=== PATIENT | male | born 1985 | race African-American/Black ===

== ENCOUNTER 2017-03-24 00:48 | Emergency (ER) | payer BC, OTHER ==
[2017-03-24 00:51] VITALS: TEMP 98.2
--- NOTE | 2017-03-24 01:18 | ED ---
General Adult HPI - General Chief complaint: Abdominal Pain Stated complaint: Abd pain Time Seen by Provider: 03/24/17 01:01 Source: patient Mode of arrival: ambulatory Limitations: no limitations - History of Present Illness Initial comments: 31-year-old male patient presents today for urogenital complaints. Patient states that approximately 2 days ago he developed some generalized mild abdominal pain, states that he felt like he might of had some gas. He states that this did last for a couple of days however has resolved. Additionally patient has been experiencing some dysuria, frequency of urination, and a feeling of incomplete bladder emptying. Patient states that these symptoms have persisted despite resolution of the abdominal pain. He states that he was constipated however did have a bowel movement today. He denies any back pain, fever, chills, penile discharge, scrotal swelling, testicular pain, nausea, vomiting, diarrhea, hematochezia, melena, dizziness, weakness, headaches, or visual disturbance. He states that he rarely drinks alcohol. Denies any tobacco or illicit drug use. States that he is in a monogamous relationship and is not concerned for STDs. - Related Data Home Medications Medication Instructions Recorded Confirmed No Known Home Medications [No 03/24/17 03/24/17 Known Home Medications] Allergies Allergy/AdvReac Type Severity Reaction Status Date / Time No Known Allergies Allergy Verified 03/24/17 00:51 Review of Systems ROS Statement: Those systems with pertinent positive or pertinent negative responses have been documented in the HPI. ROS Other: All systems not noted in ROS Statement are negative. Past Medical History Past Medical History: No Reported History History of Any Multi-Drug Resistant Organisms: None Reported Past Surgical History: No Surgical Hx Reported Past Psychological History: No Psychological Hx Reported Smoking Status: Never smoker Past Alcohol Use History: Occasional Past Drug Use History: None Reported General Exam Limitations: no limitations General appearance: alert, in no apparent distress, other (This is a well- developed, well-nourished adult male patient in no acute distress. Vital signs upon presentation are temperature 98.2F, pulse 97, respirations 20, blood pressure 128/85, pulse ox 100% on room air.) Eye exam: Present: normal appearance, PERRL, EOMI. Absent: scleral icterus, conjunctival injection, periorbital swelling ENT exam: Present: normal exam, normal oropharynx, mucous membranes moist Respiratory exam: Present: normal lung sounds bilaterally. Absent: respiratory distress, wheezes, rales, rhonchi, stridor Cardiovascular Exam: Present: regular rate, normal rhythm, normal heart sounds. Absent: systolic murmur, diastolic murmur, rubs, gallop, clicks GI/Abdominal exam: Present: soft, normal bowel sounds. Absent: distended, tenderness, guarding, rebound, rigid, mass, hernia Back exam: Present: normal inspection. Absent: CVA tenderness (R), CVA tenderness (L) Neurological exam: Present: alert, oriented X3, CN II-XII intact Psychiatric exam: Present: normal affect, normal mood Skin exam: Present: warm, dry, intact, normal color. Absent: rash Course Vital Signs 03/24/17 00:49 Temperature 98.2 F Pulse Rate 97 Respiratory 20 Rate Blood Pressure 128/85 O2 Sat by Pulse 100 Oximetry Medical Decision Making - Medical Decision Making 31-year-old male patient presented for evaluation today for symptoms of dysuria , feelings of incomplete bladder emptying, and frequency in urination. Patient also had been experiencing some mild generalized abdominal pain over the last couple of days it has since resolved. Physical examination was unremarkable, abdomen was nontender, nondistended. Urinalysis was negative for any acute process. Urine was sent for Neisseria and Chalmydia culture. KUB x-ray of the abdomen showed overall nonobstructive bowel gas pattern, no significant fecal burden noted. At this time patient vital signs are stable, he is not in any distress. He will be discharged home. He is instructed to call for an appointment with his primary care physician should his symptoms continue. He is instructed to increase his fluid intake. He is instructed to return here immediately for any new, worsening, or concerning symptoms. He verbalizes understanding and agrees this plan. - Lab Data Lab Results 03/24/17 Range/Units 01:10 Urine Color Light Yellow Urine Appearance Clear (Clear) Urine pH 7.0 (5.0-8.0) Ur Specific [place] 1.005 (1.001-1.035) Urine Protein Negative (Negative) Urine Glucose (UA) Negative (Negative) Urine Ketones Negative (Negative) Urine Blood Negative (Negative) Urine Nitrite Negative (Negative) Urine Bilirubin Negative (Negative) Urine Urobilinogen <2.0 (<2.0) mg/dL Ur Leukocyte Esterase Negative (Negative) - Radiology Data Radiology results: report reviewed, image reviewed Two-view x-ray the abdomen shows no sign of intestinal obstruction or pneumoperitoneum. Fecal pattern is normal. Lung bases are clear. There are no pathologic calcifications over the kidneys. Bony structures appear normal. There is no sign of a mass. Impression by Dr. Cantrell shows nonacute abdomen. Disposition Clinical Impression: Abdominal pain, Dysuria Disposition: HOME SELF-CARE Condition: Good Instructions: Dysuria (ED), Abdominal Pain (ED) Additional Instructions: Increase fluids. Follow-up with her primary care physician for recheck in 1-2 days. Return here immediately for any new, worsening, or concerning symptoms. Referrals: Eric Alvarez MD [Primary Care Provider] - 1-2 days Time of Disposition: 01:51
[2017-03-24 01:26] LABS: Appearance,Urine Clear (Clear); Bilirubin,Urine Negative (Negative); Glucose,Urine (UA) Negative (Negative); Ketones,Urine Negative (Negative); Leukocyte Esterase,Urine Negative (Negative); Nitrite,Urine Negative (Negative); Protein,Urine Negative (Negative); Specific Gravity,Urine 1.005 (1.001-1.035); UA Billing (MACRO vs. MICRO) CHEM; Urobilinogen,Urine <2.0 mg/dL (<2.0)
--- NOTE | 2017-03-24 01:38 | XR ---
EXAMINATION TYPE: XR KUB DATE OF EXAM: 03/24/2017 COMPARISON: NONE HISTORY: Normal pain TECHNIQUE: 2 views FINDINGS: There is no sign of intestinal obstruction or pneumoperitoneum. Fecal pattern is normal. Ibis ng bases are clear. There are no pathologic calcifications over the kidneys. Bony structures appear n ormal. There is no sign of a mass. IMPRESSION: Nonacute abdomen.
[2017-03-24 02:04] VITALS: BP 128/72; PULSE 68; RESP 18
== END 2017-03-24 02:02 | disposition home or self-care (01) ==
LOC: EC 00:48
DX: R10.84 Generalized abdominal pain (principal); R30.0 Dysuria; R35.0 Frequency of micturition
CPT/HCPCS: 74000; 81003; 87491; 87591; 99284

== ENCOUNTER → 2021-02-03 | Outpatient (CLI) | payer OTHER ==
[2021-02-03 11:05] LABS: HCT 46.4 % (39.6-50.0); HGB 15.2 g/dL (13.0-17.0); MCH 29.3 pg (27.0-32.0); MCHC 32.8 g/dL (32.0-37.0); MCV 89.4 fL (80.0-97.0); Mean Platelet Volume 10.2 fL (9.5-12.2); Platelet Count 251 X 10*3/uL (140-440); RBC 5.19 X 10*6/uL (4.40-5.60); RDW 12.6 % (11.5-14.5)
[2021-02-04 03:12] LABS: African American GFR (CKD) 89.6 (60.0-200.0); Albumin 4.7 g/dL (3.80-4.90); Albumin/Globulin Ratio 1.88 (1.60-3.17); BUN/Creat Ratio 11.67 Ratio (12.00-20.00); Calcium 9.9 mg/dL (8.7-10.3); Chol/HDL Ratio 2.45; Globulin 2.5 g/dL (1.6-3.3); Non-African American GFR(CKD) 77.3 (60.0-200.0); Potassium 4.2 mmol/L (3.5-5.5); Total Bilirubin 0.7 mg/dL (0.2-1.2); Total Protein 7.2 g/dL (6.2-8.2)
[2021-02-04 04:15] LABS: Anion Gap 12.2 mmol/L (4.00-12.00); Carbon Dioxide 23.8 mmol/L (21.6-31.8)
== END | disposition home or self-care (01) ==
LOC: LABWHC1 07:20
PROVIDERS: ATTEND Family Medicine
DX: Z00.00 Encounter for general adult medical examination without abnormal findings (principal)
CPT/HCPCS: 36415; 80053; 80061; 85027

== ENCOUNTER → 2023-04-02 | Outpatient (CLI) | payer OTHER ==
[2023-04-02 15:40] LABS: HCT 43.7 % (39.6-50.0); HGB 14.5 d/dL (13.0-17.0); MCH 30.3 pg (27.0-32.0); MCHC 33.2 d/dL (32.0-37.0); MCV 91.2 FL (80.0-97.0); Mean Platelet Volume 10.5 FL (9.5-12.2); NRBC Per 100 WBC 0 X 10*3/uL (0.00-0.01); Platelet Count 304 X 10*3/uL (140-440); RBC 4.79 X 10*6/uL (4.40-5.60); RDW 13.1 % (11.5-14.5); WBC 5.18 X 10*3/uL (4.50-10.00)
[2023-04-02 16:04] LABS: ALT 21 U/L (10-49); AST 32 U/L (14-35); Albumin 4.6 d/dL (3.8-4.9); Albumin/Globulin Ratio 1.92 Ratio (1.60-3.17); Alkaline Phosphatase 88 U/L (41-126); Blood Urea Nitrogen 11.3 mg/dL (9.0-27.0); Calcium 9.7 mg/dL (8.7-10.3); Carbon Dioxide 26.6 mmol/L (21.6-31.8); Chloride 105 mmol/L (96-109); Chol/HDL Ratio 2.76 Ratio; Globulin 2.4 d/dL (1.6-3.3); Glucose 91 mg/dL (70-110); LDL Cholesterol,Calculated 160.6 mg/dL (0.0-131.0); Potassium 4.4 mmol/L (3.5-5.5); Sodium 142 mmol/L (135-145); Total Bilirubin 0.3 mg/dL (0.3-1.2); VLDL Calculation 12.66 mg/dL (5.00-40.00)
== END | disposition home or self-care (01) ==
LOC: LABWHC1 10:22
PROVIDERS: ATTEND Family Medicine
DX: Z00.00 Encounter for general adult medical examination without abnormal findings (principal)
CPT/HCPCS: 36415; 80053; 80061; 85027

== ENCOUNTER → 2024-05-20 | Outpatient (CLI) | payer BC ==
[2024-05-20 14:49] LABS: HCT 43.9 % (39.6-50.0); HGB 14.4 g/dL (13.0-17.0); MCH 29.6 pg (27.0-32.0); MCHC 32.8 g/dL (32.0-37.0); MCV 90.3 FL (80.0-97.0); Mean Platelet Volume 10.5 FL (9.5-12.2); NRBC Per 100 WBC 0 X 10*3/uL (0.00-0.01); Platelet Count 271 X 10*3/uL (140-440); RBC 4.86 X 10*6/uL (4.40-5.60); WBC 6.66 X 10*3/uL (4.50-10.00)
[2024-05-20 15:12] LABS: BUN/Creat Ratio 10.18 Ratio (12.00-20.00); Blood Urea Nitrogen 11.2 mg/dL (9.0-27.0); Carbon Dioxide 29.2 mmol/L (21.6-31.8); Chloride 103 mmol/L (96-109); Chol/HDL Ratio 3.02 Ratio; Glucose 95 mg/dL (70-110); LDL Cholesterol,Calculated 157.3 mg/dL (0.0-131.0); Potassium 4.2 mmol/L (3.5-5.5); Sodium 143 mmol/L (135-145); VLDL Calculation 16.72 mg/dL (5.00-40.00)
[2024-05-20 15:13] LABS: ALT 13 U/L (10-49); AST 26 U/L (14-35); Albumin 4.5 g/dL (3.8-4.9); Albumin/Globulin Ratio 1.73 Ratio (1.60-3.17); Alkaline Phosphatase 81 U/L (41-126); Calcium 9.7 mg/dL (8.7-10.3); Globulin 2.6 g/dL (1.6-3.3); Total Bilirubin 0.3 mg/dL (0.3-1.2); Total Protein 7.1 g/dL (6.2-8.2)
== END | disposition home or self-care (01) ==
LOC: LABWHC1 08:22
PROVIDERS: ATTEND Family Medicine
DX: Z00.00 Encounter for general adult medical examination without abnormal findings (principal)
CPT/HCPCS: 36415; 80053; 80061; 85027